=== PATIENT | male | born 1995 | race Caucasian/White ===

== ENCOUNTER 2023-09-17 08:01 | Outpatient (RCR) | payer OTHER | END 2023-10-17 | disposition home or self-care (01) | LOC: WSST | DX: R13.12 Dysphagia, oropharyngeal phase (principal) ==

== ENCOUNTER 2023-10-24 09:00 | Outpatient (RCR) | payer OTHER | END 2023-11-16 | disposition home or self-care (01) | LOC: WSST | DX: R13.12 Dysphagia, oropharyngeal phase (principal) ==

== ENCOUNTER 2024-01-09 10:17 | Day surgery (SDC) | payer OTHER ==
[~2024-01-09] VITALS: Ht 182.9 cm; Wt 91.5 kg
[~2024-01-09 10:17] MED LIST: LR 1,000 ML IV SCH
[2024-01-09] MEDS ORDERED: fentaNYL 50 MCG/ML 2 ML VIAL ONE (11:12)
[2024-01-09] MEDS ORDERED: Glycopyrrolate 0.2 MG/ML 1 ML VIAL ONE (11:14)
[2024-01-09] MEDS ORDERED: Lidocaine PF 2% (20 MG/ML) 5 ML VIAL ONE (11:14)
[2024-01-09] MEDS ORDERED: HYDROmorphone 1 MG/1 ML SYRINGE [PACU/SDC ONLY] IV PRN ×2 (12:00→12:45)
[2024-01-09] MEDS ORDERED: droPERidol 2.5 MG/ML 2 ML VIAL IV PRN ×2 (12:00→12:45)
[2024-01-09] MEDS ORDERED: hydrALAZINE 20 MG/ML 1 ML VIAL IV PRN (12:00)
[2024-01-09] MEDS ORDERED: fentaNYL 50 MCG/ML 1 ML SYRINGE/VIAL [PACU/SDC ONLY] IV PRN ×2 (12:00→12:45)
[2024-01-09] MEDS ORDERED: Ondansetron 4 MG/2 ML VIAL IV PRN ×3 (12:00→13:45)
[2024-01-09] MEDS ORDERED: Morphine 2 MG/1 ML VIAL [PACU/SDC ONLY] IV PRN (12:45)
[2024-01-09] MEDS ORDERED: Meperidine 50 MG/ML 1 ML VIAL IV PRN (12:45)
[2024-01-09 12:52] VITALS: BP 138/80; PULSE 107; TEMP 96.7
[2024-01-09] MEDS ORDERED: Lidocaine PF 2% (20 MG/ML) 10 ML POLY AMP IJ ONE (12:52)
[2024-01-09] MEDS ORDERED: VYVANSE70 MG PO (12:57)
[2024-01-09] MEDS ORDERED: ZOFRAN 4MG T4 MG/TAB PO (12:58)
[2024-01-09] MEDS ORDERED: BUSPAR DIVIDOSE15 MG PO (12:58)
[2024-01-09] MEDS ORDERED: LAMICTAL200 MG PO (12:59)
[2024-01-09] MEDS ORDERED: RISPERDAL 0.5M0.5 MG PO (12:59)
[2024-01-09] MEDS ORDERED: DESYREL 50MG50 MG PO (13:00)
[2024-01-09] MEDS ORDERED: CAPLYTA42 MG PO (13:00)
[2024-01-09] MEDS ORDERED: FLOMAX 0.40.4 MG/CAP PO (13:01)
[2024-01-09 13:02] VITALS: BP 126/80; PULSE 102; TEMP 97.3
[2024-01-09 13:30] VITALS: BP 116/58; PULSE 97
[2024-01-09] MEDS ORDERED: Acetaminophen 325 MG TAB PO PRN (13:45)
[2024-01-09 14:00] VITALS: BP 127/75; PULSE 90
--- NOTE | 2024-01-09 15:14 | NUR ---
1302- PT RETURNS FROM PACU VIA CART TO [facility]. MONITORS ON AND ALARMS SET. CALL LIGHT WITHIN REACH. REPORT RECEIVED FROM GARRY BOND AND SARAH HEDRICK. PT ALERT AND ORIENTED. PT REQUESTS FOOD AND DRINK. PT DENIES ANY PAIN OR NAUSEA. 1330- PT TAKING FOOD AND DRINK. NO COMPLICATIONS NOTED. 1420- DISCHARGE INSTRUCTIONS GIVEN TO PT. ALL QUESTIONS ANSWERED. 1500- PT TRANSFERRED OUT OF THE HOSPITAL VIA [facility] AND ASSIST TO PRIVATE VEHICLE DRIVEN BY FRIEND.
== END 2024-01-09 15:00 | disposition home or self-care (01) ==
LOC: SDCO 10:17
DX: K60.1 Chronic anal fissure (principal); F17.290 Nicotine dependence, other tobacco product, uncomplicated
CPT/HCPCS: J0585; J0690; J2704; J3010; J7120